=== PATIENT | male | born 1940 | race Caucasian/White ===

== ENCOUNTER 2017-09-27 08:42 | Inpatient (IN) | payer MEDICARE, OTHER ==
[~2017-09-27] VITALS: Ht 177.8 cm; Wt 100.8 kg
[2017-09-27] MEDS ORDERED: SODIUM CHLORIDE FLUSH 10ML SYR IVF ONE (09:30)
[2017-09-27] MEDS ORDERED: VANCOMYCIN PMX 1GM/200ML 200 ML IVPB ONE (10:00)
[2017-09-27] MEDS ORDERED: hydrALAzine 20 MG/ML, 1ML IV ONE (10:00)
[2017-09-27] MEDS ORDERED: SODIUM CHLORIDE FLUSH 10ML SYR IVF PRN (10:00)
[2017-09-27 10:15] LABS: BASOPHILS # (AUTO) 0.01 x10^3/uL (0-0.1); BASOPHILS % (AUTO) 0 % (0-1); EOSINOPHILS # (AUTO) 0.16 x10^3/uL (0-0.4); EOSINOPHILS % (AUTO) 2 % (1-7); LYMPHOCYTES # (AUTO) 0.75 x10^3/uL (1-3.4); LYMPHOCYTES % (AUTO) 7 % (22-44); MD NO; MEAN CORPUSCULAR HEMOGLOBIN 31.7 pg (27.5-34.5); MEAN CORPUSCULAR HGB CONC 33.2 g/dL (33.2-36.2); MEAN CORPUSCULAR VOLUME 95.4 fL (81-97); MEAN PLATELET VOLUME 9.3 fL (7.4-10.4); MONOCYTES # (AUTO) 0.75 x10^3/uL (0.2-0.8); MONOCYTES % (AUTO) 7 % (2-9); NEUTROPHILS # (AUTO) 8.68 x10^3/uL (1.8-6.8); NEUTROPHILS % (AUTO) 84 % (42-75); PLATELET COUNT 178 x10^3/uL (130-400); RED BLOOD COUNT 4.68 x10^6/uL (4.38-5.82); RED CELL DISTRIBUTION WIDTH 15.6 % (9.4-14.8)
[2017-09-27 10:25] LABS: INTERNATIONAL NORMALIZED RATIO 1.14 (0.93-1.1); PROTHROMBIN TIME 11.8 Seconds (9.6-11.5)
[2017-09-27 10:28] LABS: ALANINE AMINOTRANSFERASE 66 U/L (12-78); ALBUMIN 3.2 g/dL (3.4-5.0); ANION GAP 6 mmol/L (5-15); CALCIUM 8.2 mg/dL (8.5-10.1); CHLORIDE 111 mmol/L (98-107); CREATININE 2.58 mg/dL (0.7-1.3)
[2017-09-27] MEDS ORDERED: [UNRECOGNIZED DRUG - REMARK] MC SCH (10:30)
[2017-09-27 10:33] LABS: ALKALINE PHOSPHATASE 55 U/L (45-117); BILIRUBIN,TOTAL 1.4 mg/dL (0.2-1.0); TOTAL PROTEIN 6.2 g/dL (6.4-8.2)
[2017-09-27 10:36] LABS: TROPONIN I 0.129 ng/mL (0.000-0.045)
[2017-09-27] MEDS: SODIUM CHLORIDE 0.9% 1,000 ML IV SCH ×2 (11:00→17:05)
[2017-09-27] MEDS ORDERED: hydrALAzine 20 MG/ML, 1ML ONE ×2 (11:08→13:42)
[2017-09-27] MEDS ORDERED: METO25TA35 PO (11:23)
[2017-09-27 11:48] VITALS: BP 202/84
[2017-09-27] MEDS ORDERED: CEFAZOLIN 1,000 MG ONE (12:38)
[2017-09-27] MEDS ORDERED: MIDAZOLAM 1 MG/ML, 5ML ONE (12:38)
[2017-09-27] MEDS ORDERED: FENTANYL PF 100 MCG/2ML ONE ×4 (12:38→16:03)
[2017-09-27] MEDS ORDERED: CEFAZOLIN PMX 1GM/50ML 0 ML ONE (12:38)
[2017-09-27] MEDS ORDERED: VANCOMYCIN 500 MG ONE ×2 (12:40→14:36)
[2017-09-27] MEDS ORDERED: VANCOMYCIN PMX 1GM/200ML 200 ML ONE (12:40)
[2017-09-27] MEDS ORDERED: ONDANSETRON 2MG/ML, 2ML ONE (12:50)
[2017-09-27] MEDS ORDERED: MIDAZOLAM 1 MG/ML, 2ML ONE (14:11)
[2017-09-27] MEDS ORDERED: AMLODIPINE 5 MG TABLET PO ONE (17:00)
[2017-09-27] MEDS ORDERED: ACETAMINOPHEN 325 MG TABLET PO PRN (19:00)
[2017-09-27] MEDS ORDERED: ONDANSETRON 2MG/ML, 2ML IVPush PRN (19:00)
[2017-09-27 19:04] LABS: TROPONIN I 0.304 ng/mL (0.000-0.045)
[2017-09-27] MEDS: HEPARIN 5,000 UNITS/ML, 1ML SQ SCH (20:27)
[2017-09-28 00:38] LABS: TROPONIN I 0.475 ng/mL (0.000-0.045)
[2017-09-28] MEDS: HEPARIN 5,000 UNITS/ML, 1ML SQ SCH ×3 (03:04→20:43)
[2017-09-28] MEDS: hydrALAzine 20 MG/ML, 1ML IV PRN ×3 (03:35→13:35)
[2017-09-28 05:59] LABS: BASOPHILS # (AUTO) 0.01 x10^3/uL (0-0.1); BASOPHILS % (AUTO) 0 % (0-1); EOSINOPHILS # (AUTO) 0.09 x10^3/uL (0-0.4); EOSINOPHILS % (AUTO) 1 % (1-7); LYMPHOCYTES # (AUTO) 0.59 x10^3/uL (1-3.4); LYMPHOCYTES % (AUTO) 5 % (22-44); MD NO; MEAN CORPUSCULAR HEMOGLOBIN 32.4 pg (27.5-34.5); MEAN CORPUSCULAR HGB CONC 33.8 g/dL (33.2-36.2); MEAN PLATELET VOLUME 10.3 fL (7.4-10.4); MONOCYTES # (AUTO) 0.89 x10^3/uL (0.2-0.8); MONOCYTES % (AUTO) 8 % (2-9); NEUTROPHILS % (AUTO) 86 % (42-75); PLATELET COUNT 128 x10^3/uL (130-400); RED BLOOD COUNT 4.49 x10^6/uL (4.38-5.82); RED CELL DISTRIBUTION WIDTH 15.3 % (9.4-14.8)
[2017-09-28 06:22] LABS: ALANINE AMINOTRANSFERASE 47 U/L (12-78); ALBUMIN 2.8 g/dL (3.4-5.0); ANION GAP 7 mmol/L (5-15); CALCIUM 7.8 mg/dL (8.5-10.1); CHLORIDE 115 mmol/L (98-107)
[2017-09-28 06:24] LABS: ALKALINE PHOSPHATASE 52 U/L (45-117); BILIRUBIN,TOTAL 1.2 mg/dL (0.2-1.0); CREATININE 2.25 mg/dL (0.7-1.3); TOTAL PROTEIN 5.7 g/dL (6.4-8.2); VANCOMYCIN,TROUGH 8.9 mcg/mL (5.0-10.0)
[2017-09-28 08:59] LABS: TROPONIN I 0.309 ng/mL (0.000-0.045)
[2017-09-28] MEDS: PANTOPRAZOLE 40 MG IV IVPush SCH (09:18)
[2017-09-28] MEDS ORDERED: LIDOCAINE-MPF 2%, 2ML ONE (10:30)
[2017-09-28] MEDS: SODIUM CHLORIDE 0.9% 1,000 ML IV SCH (11:23)
[2017-09-28 16:35] LABS: ALANINE AMINOTRANSFERASE 41 U/L (12-78); ALBUMIN 2.6 g/dL (3.4-5.0); ANION GAP 6 mmol/L (5-15); CALCIUM 7.6 mg/dL (8.5-10.1); CHLORIDE 113 mmol/L (98-107); CREATININE 2.45 mg/dL (0.7-1.3)
[2017-09-28 16:38] LABS: ALKALINE PHOSPHATASE 51 U/L (45-117); TOTAL PROTEIN 5.3 g/dL (6.4-8.2)
[2017-09-28] MEDS: FENTANYL PF 100 MCG/2ML IVPush PRN ×2 (16:54→20:45)
[2017-09-28 17:33] LABS: BASOPHILS # (AUTO) 0.01 x10^3/uL (0-0.1); BASOPHILS % (AUTO) 0 % (0-1); EOSINOPHILS # (AUTO) 0.03 x10^3/uL (0-0.4); EOSINOPHILS % (AUTO) 0 % (1-7); LYMPHOCYTES # (AUTO) 0.48 x10^3/uL (1-3.4); LYMPHOCYTES % (AUTO) 4 % (22-44); MD NO; MEAN CORPUSCULAR HEMOGLOBIN 32.3 pg (27.5-34.5); MEAN CORPUSCULAR HGB CONC 33.4 g/dL (33.2-36.2); MEAN CORPUSCULAR VOLUME 96.6 fL (81-97); MONOCYTES # (AUTO) 0.92 x10^3/uL (0.2-0.8); MONOCYTES % (AUTO) 7 % (2-9); NEUTROPHILS % (AUTO) 89 % (42-75); PLATELET COUNT 138 x10^3/uL (130-400)
[2017-09-28 17:51] LABS: INTERNATIONAL NORMALIZED RATIO 1.21 (0.93-1.1); PROTHROMBIN TIME 12.4 Seconds (9.6-11.5)
[2017-09-28 18:00] LABS: HEMOGLOBIN A1C 5.4 % (4.2-6.3)
[2017-09-28] MEDS: SODIUM CHLORIDE FLUSH 10ML SYR IVF SCH (20:46)
[2017-09-29] MEDS ORDERED: ALBUMIN HUMAN 5% 500 ML IV PRN (00:30)
[2017-09-29] MEDS: SODIUM CHLORIDE 0.9% 1,000 ML IV SCH ×2 (02:01→14:20)
[2017-09-29] MEDS: HEPARIN 5,000 UNITS/ML, 1ML SQ SCH ×3 (03:06→20:45)
[2017-09-29 04:35] LABS: BASOPHILS # (AUTO) 0.05 x10^3/uL (0-0.1); BASOPHILS % (AUTO) 1 % (0-1); EOSINOPHILS # (AUTO) 0.16 x10^3/uL (0-0.4); EOSINOPHILS % (AUTO) 2 % (1-7); LYMPHOCYTES % (AUTO) 6 % (22-44); MD NO; MEAN CORPUSCULAR HEMOGLOBIN 32.4 pg (27.5-34.5); MEAN CORPUSCULAR HGB CONC 33.7 g/dL (33.2-36.2); MEAN CORPUSCULAR VOLUME 96.1 fL (81-97); MEAN PLATELET VOLUME 9.1 fL (7.4-10.4); MONOCYTES # (AUTO) 1.01 x10^3/uL (0.2-0.8); MONOCYTES % (AUTO) 9 % (2-9); NEUTROPHILS # (AUTO) 9.19 x10^3/uL (1.8-6.8); NEUTROPHILS % (AUTO) 83 % (42-75); PLATELET COUNT 126 x10^3/uL (130-400); RED BLOOD COUNT 4.26 x10^6/uL (4.38-5.82); RED CELL DISTRIBUTION WIDTH 15.4 % (9.4-14.8)
[2017-09-29 04:41] LABS: ANION GAP 3 mmol/L (5-15); CALCIUM 7.3 mg/dL (8.5-10.1); CHLORIDE 116 mmol/L (98-107); CREATININE 2.51 mg/dL (0.7-1.3)
[2017-09-29 04:51] VITALS: BP_SYST 167; BP_SYST 174; BP_DIAS 74; BP_DIAS 82
[2017-09-29] MEDS ORDERED: SUFentanil 50 MCG/ML, 5ML ONE (07:25)
[2017-09-29] MEDS ORDERED: MIDAZOLAM 10MG/2 ML ONE (07:25)
[2017-09-29] MEDS ORDERED: PHENYLEPHRINE 10 MG in SODIUM CHLORIDE 0.9% 249 ML IV PRN (07:30)
[2017-09-29] MEDS ORDERED: DEXMEDETOMIDINE 200 MCG in SODIUM CHLORIDE 0.9% 48 ML IV SCH (07:30)
[2017-09-29] MEDS ORDERED: CEFUROXIME 1.5 GM in SODIUM CHLORIDE 0.9% 50 ML IVPB ONE (07:30)
[2017-09-29] MEDS ORDERED: POTASSIUM CHLORIDE 80 MEQ, SODIUM BICARBONATE 8.4% 10 MEQ, MAGNESIUM SULFATE 0.5 GM, LI... IV PRN (07:30)
[2017-09-29] MEDS ORDERED: VANCOMYCIN 1,200 MG in SODIUM CHLORIDE 0.9% 250 ML IVPB ONE (07:30)
[2017-09-29] MEDS ORDERED: REGULAR INSULIN 62.5 UNITS in SODIUM CHLORIDE 0.9% 249.375 ML IV PRN (07:30)
[2017-09-29] MEDS ORDERED: CHLORHEXIDINE 15 ML BOTTLE MM ONE (07:30)
[2017-09-29] MEDS ORDERED: MANNITOL PMX 20% 500 ML IVPB PRN (07:30)
[2017-09-29] MEDS ORDERED: EPINEPHRINE 2 MG in SODIUM CHLORIDE 0.9% 248 ML IV SCH (07:30)
[2017-09-29 08:42] LABS: MICROSCOPIC INDICATED
[2017-09-29] MEDS: DOCUSATE 100 MG CAPSULE PO SCH ×2 (09:00→19:24)
[2017-09-29] MEDS: PANTOPRAZOLE 40 MG IV IVPush SCH (09:00)
[2017-09-29] MEDS: SODIUM CHLORIDE FLUSH 10ML SYR IVF SCH ×2 (09:00→19:24)
[2017-09-29] MEDS ORDERED: PROPOFOL 10 MG/ML, 20ML ONE (10:29)
[2017-09-29] MEDS ORDERED: ROCURONIUM 10MG/ML,5ML ONE ×2 (10:29)
[2017-09-29] MEDS ORDERED: DEXMEDETOMIDINE 200 MCG in SODIUM CHLORIDE 0.9% 48 ML IV PRN (11:38)
[2017-09-29] MEDS ORDERED: HYDROcodone/APAP 10/325 MG TABLET PO PRN (12:00)
[2017-09-29] MEDS ORDERED: HYDROcodone/APAP 5/325 TABLET PO PRN (12:00)
[2017-09-29] MEDS ORDERED: MIDAZOLAM 1 MG/ML, 5ML IVPush PRN (12:00)
[2017-09-29] MEDS ORDERED: ACETAMINOPHEN 325 MG TABLET PO PRN (12:00)
[2017-09-29] MEDS ORDERED: CEFUROXIME 1.5 GM in SODIUM CHLORIDE 0.9% 50 ML IVPB SCH (12:00)
[2017-09-29] MEDS ORDERED: PROCHLORPERAZINE 5 MG/ML, 2ML IVPush PRN (12:00)
[2017-09-29] MEDS ORDERED: ONDANSETRON 2MG/ML, 2ML IVPush PRN (12:00)
[2017-09-29] MEDS ORDERED: BISACODYL 10 MG SUPP PR PRN (12:00)
[2017-09-29] MEDS ORDERED: BISACODYL 5 MG EC TABLET PO PRN (12:00)
[2017-09-29] MEDS ORDERED: ACETAMINOPHEN 650 MG SUPP PR PRN (12:00)
[2017-09-29] MEDS ORDERED: MORPHINE SULFATE 4 MG/ML, 1ML ONE ×2 (13:50→15:27)
[2017-09-29] MEDS: morphine SULFATE 10 MG/ML, 1ML IVPush PRN ×2 (13:53→15:29)
[2017-09-29] MEDS: hydrALAzine 20 MG/ML, 1ML IV PRN (15:11)
[2017-09-29] MEDS: FENTANYL PF 100 MCG/2ML IVPush PRN ×4 (15:37→21:14)
[2017-09-29] MEDS ORDERED: LABETALOL 5MG/ML, 20ML ONE (15:51)
[2017-09-29] MEDS ORDERED: LABETALOL 5MG/ML, 20ML IVPush PRN (16:00)
[2017-09-29] MEDS: OXYcodone IR 5MG TABLET PO PRN (19:23)
[2017-09-30] MEDS: OXYcodone IR 5MG TABLET PO PRN ×5 (00:05→20:20)
[2017-09-30] MEDS: SODIUM CHLORIDE 0.9% 1,000 ML IV SCH ×2 (00:05→13:01)
[2017-09-30] MEDS: VANCOMYCIN 1,400 MG in SODIUM CHLORIDE 0.9% 250 ML IVPB SCH (00:05)
[2017-09-30] MEDS: HEPARIN 5,000 UNITS/ML, 1ML SQ SCH ×3 (01:48→20:20)
[2017-09-30 05:51] LABS: MEAN CORPUSCULAR HGB CONC 32.9 g/dL (33.2-36.2); MEAN CORPUSCULAR VOLUME 97.2 fL (81-97); MEAN PLATELET VOLUME 9.1 fL (7.4-10.4); PLATELET COUNT 133 x10^3/uL (130-400); RED BLOOD COUNT 4.43 x10^6/uL (4.38-5.82); RED CELL DISTRIBUTION WIDTH 15.9 % (9.4-14.8)
[2017-09-30 06:18] LABS: MD YES
[2017-09-30 06:19] LABS: BAND#(MANUAL) 0.64 x10^3/uL; BANDS%(MANUAL) 3 % (0-7); LYMPH#(MANUAL) 0.64 x10^3/uL (1-3.4); LYMPHS% (MANUAL) 3 % (22-44); MONOS#(MANUAL) 1.28 x10^3/uL (0.3-2.7); MONOS% (MANUAL) 6 % (2-9); SEG#(MANUAL) 18.74 x10^3/uL (1.8-6.8); SEGS% (MANUAL) 88 % (42-75)
[2017-09-30 06:21] LABS: <PLATELET ESTIMATE> ADEQUATE; <PLT MORPHOLOGY> NORMAL PLT MORPH; ANISOCYTOSIS 1+
[2017-09-30] MEDS: SODIUM CHLORIDE FLUSH 10ML SYR IVF SCH ×2 (08:33→20:21)
[2017-09-30] MEDS: PANTOPRAZOLE 40 MG IV IVPush SCH (08:33)
[2017-09-30] MEDS: DOCUSATE 100 MG CAPSULE PO SCH ×2 (08:33→20:20)
[2017-09-30] MEDS: CHLORHEXIDINE 15 ML BOTTLE MM SCH (11:57)
[2017-09-30] MEDS: hydrALAzine 20 MG/ML, 1ML IV PRN (13:01)
[2017-09-30 15:29] VITALS: BP 131/74
[2017-09-30] MEDS: CARVEDILOL 6.25 MG TABLET PO SCH (17:36)
[2017-09-30] MEDS ORDERED: TRAV5DRO EACHEYE (17:38)
[2017-09-30 18:34] VITALS: BP 117/69
[2017-09-30 20:17] VITALS: BP 125/68
[2017-10-01] VITALS (7 sets, daily range): BP systolic 107–188; BP diastolic 55–83
[2017-10-01] MEDS: VANCOMYCIN 1,400 MG in SODIUM CHLORIDE 0.9% 250 ML IVPB SCH (00:11)
[2017-10-01] MEDS: CHLORHEXIDINE 15 ML BOTTLE MM SCH ×3 (00:51→23:39)
[2017-10-01] MEDS: SODIUM CHLORIDE 0.9% 1,000 ML IV SCH (04:05)
[2017-10-01] MEDS: HEPARIN 5,000 UNITS/ML, 1ML SQ SCH ×3 (04:07→20:40)
[2017-10-01 04:53] LABS: BASOPHILS # (AUTO) 0.01 x10^3/uL (0-0.1); BASOPHILS % (AUTO) 0 % (0-1); EOSINOPHILS # (AUTO) 0.03 x10^3/uL (0-0.4); EOSINOPHILS % (AUTO) 0 % (1-7); LYMPHOCYTES # (AUTO) 0.46 x10^3/uL (1-3.4); LYMPHOCYTES % (AUTO) 4 % (22-44); MD NO; MEAN CORPUSCULAR HGB CONC 33.3 g/dL (33.2-36.2); MEAN CORPUSCULAR VOLUME 96.2 fL (81-97); MEAN PLATELET VOLUME 9.1 fL (7.4-10.4); MONOCYTES # (AUTO) 0.89 x10^3/uL (0.2-0.8); MONOCYTES % (AUTO) 7 % (2-9); NEUTROPHILS # (AUTO) 11.09 x10^3/uL (1.8-6.8); NEUTROPHILS % (AUTO) 89 % (42-75); PLATELET COUNT 118 x10^3/uL (130-400); RED BLOOD COUNT 4.26 x10^6/uL (4.38-5.82); RED CELL DISTRIBUTION WIDTH 16.3 % (9.4-14.8)
[2017-10-01 05:01] LABS: ANION GAP 7 mmol/L (5-15); CALCIUM 7.2 mg/dL (8.5-10.1); CHLORIDE 115 mmol/L (98-107); CREATININE 3.12 mg/dL (0.7-1.3)
[2017-10-01] MEDS: CARVEDILOL 6.25 MG TABLET PO SCH ×2 (06:08→18:29)
[2017-10-01] MEDS: DOCUSATE 100 MG CAPSULE PO SCH ×2 (08:42→20:14)
[2017-10-01] MEDS: PANTOPROZOLE 40MG TABLET PO SCH (08:42)
[2017-10-01] MEDS: SODIUM CHLORIDE FLUSH 10ML SYR IVF SCH ×2 (08:47→20:14)
[2017-10-01] MEDS ORDERED: FUROSEMIDE 40 MG/4 ML IV SCH (10:30)
[2017-10-01 12:48] LABS: MICROSCOPIC INDICATED
[2017-10-01] MEDS: CEFTRIAXONE 1,000 MG in SODIUM CHLORIDE 0.9% 50 ML IV SCH (22:22)
[2017-10-02 01:08] VITALS: BP 147/62
[2017-10-02] MEDS: HEPARIN 5,000 UNITS/ML, 1ML SQ SCH ×2 (05:33→16:38)
[2017-10-02 06:09] LABS: BASOPHILS # (AUTO) 0.02 x10^3/uL (0-0.1); BASOPHILS % (AUTO) 0 % (0-1); EOSINOPHILS # (AUTO) 0.17 x10^3/uL (0-0.4); EOSINOPHILS % (AUTO) 1 % (1-7); LYMPHOCYTES # (AUTO) 0.34 x10^3/uL (1-3.4); LYMPHOCYTES % (AUTO) 3 % (22-44); MD NO; MEAN CORPUSCULAR HEMOGLOBIN 31.7 pg (27.5-34.5); MEAN CORPUSCULAR HGB CONC 33.4 g/dL (33.2-36.2); MEAN PLATELET VOLUME 8.8 fL (7.4-10.4); MONOCYTES % (AUTO) 6 % (2-9); NEUTROPHILS # (AUTO) 10.96 x10^3/uL (1.8-6.8); NEUTROPHILS % (AUTO) 90 % (42-75); PLATELET COUNT 135 x10^3/uL (130-400); RED BLOOD COUNT 4.06 x10^6/uL (4.38-5.82); RED CELL DISTRIBUTION WIDTH 15.5 % (9.4-14.8)
[2017-10-02 06:22] LABS: ALBUMIN 1.9 g/dL (3.4-5.0); ANION GAP 7 mmol/L (5-15); CALCIUM 7.4 mg/dL (8.5-10.1); CHLORIDE 108 mmol/L (98-107)
[2017-10-02 06:27] LABS: ALANINE AMINOTRANSFERASE 25 U/L (12-78); ALKALINE PHOSPHATASE 48 U/L (45-117); BILIRUBIN,TOTAL 0.5 mg/dL (0.2-1.0); CREATININE 3.12 mg/dL (0.7-1.3); TOTAL PROTEIN 5.5 g/dL (6.4-8.2)
[2017-10-02 06:56] VITALS: BP 160/91
[2017-10-02] MEDS ORDERED: CARVEDILOL 6.25 MG TABLET PO ONE (09:00)
[2017-10-02] MEDS ORDERED: FUROSEMIDE 40 MG/4 ML IV ONE (09:00)
[2017-10-02] MEDS: DOCUSATE 100 MG CAPSULE PO SCH ×2 (09:06→19:51)
[2017-10-02] MEDS: PANTOPROZOLE 40MG TABLET PO SCH (09:06)
[2017-10-02] MEDS: SODIUM CHLORIDE FLUSH 10ML SYR IVF SCH ×2 (09:07→19:51)
[2017-10-02 13:34] VITALS: BP 129/76
[2017-10-02 16:27] VITALS: BP 149/73
[2017-10-02] MEDS: CARVEDILOL 12.5 MG TABLET PO SCH (17:59)
[2017-10-02 19:26] VITALS: BP 151/75
[2017-10-02] MEDS ORDERED: ALBUTEROL SULFATE 2.5 MG/3 ML ONE (20:08)
[2017-10-02] MEDS ORDERED: ALBUTEROL/IPRATROPIUM 2.5MG/0.5MG, 3 ML NPPB PRN (20:30)
[2017-10-02 22:24] VITALS: BP 124/70
[2017-10-02] MEDS: CEFTRIAXONE 1,000 MG in SODIUM CHLORIDE 0.9% 50 ML IV SCH (22:31)
[2017-10-03] MEDS: HEPARIN 5,000 UNITS/ML, 1ML SQ SCH ×3 (00:26→17:19)
[2017-10-03 01:05] VITALS: BP 114/73
[2017-10-03 05:53] VITALS: BP 147/74
[2017-10-03] MEDS: CARVEDILOL 12.5 MG TABLET PO SCH ×2 (05:57→17:20)
[2017-10-03] MEDS: ALBUTEROL/IPRATROPIUM 2.5MG/0.5MG, 3 ML NPPB SCH ×4 (07:00→19:43)
[2017-10-03 07:29] VITALS: BP 122/67
[2017-10-03] MEDS ORDERED: LEVOFLOXACIN 500 MG TABLET PO ONE (09:00)
[2017-10-03] MEDS: DOCUSATE 100 MG CAPSULE PO SCH ×2 (09:11→20:49)
[2017-10-03] MEDS: PANTOPROZOLE 40MG TABLET PO SCH (09:12)
[2017-10-03] MEDS: SODIUM CHLORIDE FLUSH 10ML SYR IVF SCH ×2 (09:15→20:45)
[2017-10-03 15:09] VITALS: BP 142/73
[2017-10-03 20:47] VITALS: BP 155/85
[2017-10-04] MEDS: HEPARIN 5,000 UNITS/ML, 1ML SQ SCH ×3 (01:06→16:38)
[2017-10-04 01:34] VITALS: BP 160/82
[2017-10-04 05:57] VITALS: BP 164/80
[2017-10-04] MEDS: CARVEDILOL 12.5 MG TABLET PO SCH ×2 (06:01→16:37)
[2017-10-04] MEDS: ALBUTEROL/IPRATROPIUM 2.5MG/0.5MG, 3 ML NPPB SCH ×4 (06:55→19:37)
[2017-10-04] MEDS: DOCUSATE 100 MG CAPSULE PO SCH ×2 (07:47→21:13)
[2017-10-04] MEDS: PANTOPROZOLE 40MG TABLET PO SCH (07:58)
[2017-10-04] MEDS: SODIUM CHLORIDE FLUSH 10ML SYR IVF SCH ×2 (08:01→21:12)
[2017-10-04 08:03] VITALS: BP 144/77
[2017-10-04] MEDS ORDERED: LEVOFLOXACIN 250 MG TABLET PO SCH (09:00)
[2017-10-04] MEDS ORDERED: ERTAPENEM 1 GM in SODIUM CHLORIDE 0.9% 50 ML IV SCH (12:00)
[2017-10-04 12:47] LABS: BASOPHILS # (AUTO) 0.01 x10^3/uL (0-0.1); BASOPHILS % (AUTO) 0 % (0-1); EOSINOPHILS # (AUTO) 0.12 x10^3/uL (0-0.4); EOSINOPHILS % (AUTO) 2 % (1-7); LYMPHOCYTES # (AUTO) 0.29 x10^3/uL (1-3.4); LYMPHOCYTES % (AUTO) 4 % (22-44); MD NO; MEAN CORPUSCULAR HEMOGLOBIN 31.7 pg (27.5-34.5); MEAN CORPUSCULAR HGB CONC 33.1 g/dL (33.2-36.2); MEAN CORPUSCULAR VOLUME 95.6 fL (81-97); MEAN PLATELET VOLUME 8.3 fL (7.4-10.4); MONOCYTES % (AUTO) 8 % (2-9); NEUTROPHILS # (AUTO) 6.18 x10^3/uL (1.8-6.8); NEUTROPHILS % (AUTO) 86 % (42-75); PLATELET COUNT 164 x10^3/uL (130-400); RED BLOOD COUNT 3.96 x10^6/uL (4.38-5.82); RED CELL DISTRIBUTION WIDTH 15.6 % (9.4-14.8)
[2017-10-04 12:48] LABS: ANION GAP 7 mmol/L (5-15); CALCIUM 7.9 mg/dL (8.5-10.1); CHLORIDE 112 mmol/L (98-107); CREATININE 2.71 mg/dL (0.7-1.3)
[2017-10-04 13:20] VITALS: BP 177/82
[2017-10-04 16:36] VITALS: BP 158/88
[2017-10-04 21:08] VITALS: BP 168/76
[2017-10-05 00:32] VITALS: BP 123/69
[2017-10-05] MEDS: HEPARIN 5,000 UNITS/ML, 1ML SQ SCH ×3 (00:35→17:23)
[2017-10-05 04:40] VITALS: BP 149/77
[2017-10-05] MEDS: CARVEDILOL 12.5 MG TABLET PO SCH ×2 (04:52→17:23)
[2017-10-05] MEDS: ALBUTEROL/IPRATROPIUM 2.5MG/0.5MG, 3 ML NPPB SCH ×4 (06:28→19:54)
[2017-10-05 07:47] VITALS: BP 103/57
[2017-10-05] MEDS: PANTOPROZOLE 40MG TABLET PO SCH (08:27)
[2017-10-05] MEDS: DOCUSATE 100 MG CAPSULE PO SCH ×2 (08:27→21:45)
[2017-10-05] MEDS: SODIUM CHLORIDE FLUSH 10ML SYR IVF SCH ×2 (08:28→21:45)
[2017-10-05] MEDS: ERTAPENEM 0.5 GM in SODIUM CHLORIDE 0.9% 50 ML IV SCH (14:00)
[2017-10-05 14:06] VITALS: BP 146/79
[2017-10-05 21:44] VITALS: BP 128/74
[2017-10-05] MEDS ORDERED: DIPHENHYDRAMINE 12.5MG/5ML, 10ML UDC PO ONE (23:30)
[2017-10-06] VITALS (7 sets, daily range): BP systolic 141–201; BP diastolic 70–95
[2017-10-06] MEDS: HEPARIN 5,000 UNITS/ML, 1ML SQ SCH ×3 (01:14→17:21)
[2017-10-06] MEDS: ASPIRIN 81 MG TABLET EC PO SCH (05:25)
[2017-10-06] MEDS: CARVEDILOL 12.5 MG TABLET PO SCH ×2 (05:27→17:21)
[2017-10-06] MEDS: ALBUTEROL/IPRATROPIUM 2.5MG/0.5MG, 3 ML NPPB SCH ×4 (07:15→19:58)
[2017-10-06] MEDS: SODIUM CHLORIDE FLUSH 10ML SYR IVF SCH ×2 (08:03→22:03)
[2017-10-06] MEDS: PANTOPROZOLE 40MG TABLET PO SCH (08:04)
[2017-10-06] MEDS: DOCUSATE 100 MG CAPSULE PO SCH ×2 (08:04→22:02)
[2017-10-06] MEDS ORDERED: ACET325T14 PO (12:24)
[2017-10-06] MEDS ORDERED: CARV12.543 PO (12:25)
[2017-10-06] MEDS ORDERED: DOCU-131 PO (12:25)
[2017-10-06] MEDS ORDERED: ERTA1VIA IV (12:28)
[2017-10-06] MEDS ORDERED: PANT40TA3 PO (12:30)
[2017-10-06] MEDS ORDERED: HYDR-3342 PO (12:30)
[2017-10-06] MEDS ORDERED: ALPR0.25 PO (12:31)
[2017-10-06] MEDS ORDERED: ASPI-621 PO (12:31)
[2017-10-06] MEDS ORDERED: IPRA3AMP30 NPPB (12:33)
[2017-10-06] MEDS: ERTAPENEM 0.5 GM in SODIUM CHLORIDE 0.9% 50 ML IV SCH (13:17)
[2017-10-07] MEDS: HEPARIN 5,000 UNITS/ML, 1ML SQ SCH ×3 (01:03→17:20)
[2017-10-07 01:16] VITALS: BP 167/81
[2017-10-07] MEDS: CARVEDILOL 12.5 MG TABLET PO SCH (06:40)
[2017-10-07] MEDS: ASPIRIN 81 MG TABLET EC PO SCH (06:40)
[2017-10-07 06:42] VITALS: BP 171/83
[2017-10-07] MEDS: ALBUTEROL/IPRATROPIUM 2.5MG/0.5MG, 3 ML NPPB SCH ×4 (07:30→19:15)
[2017-10-07] MEDS: SODIUM CHLORIDE FLUSH 10ML SYR IVF SCH ×2 (09:04→21:16)
[2017-10-07] MEDS: PANTOPROZOLE 40MG TABLET PO SCH (09:04)
[2017-10-07] MEDS: AMLODIPINE 5 MG TABLET PO SCH (09:05)
[2017-10-07] MEDS: DOCUSATE 100 MG CAPSULE PO SCH (09:05)
[2017-10-07] MEDS: ERTAPENEM 0.5 GM in SODIUM CHLORIDE 0.9% 50 ML IV SCH (13:47)
[2017-10-07 15:33] VITALS: BP 149/85
[2017-10-07] MEDS ORDERED: TRAZODONE 50MG TABLET PO PRN (17:00)
[2017-10-07] MEDS: METOPROLOL TARTRATE 50 MG TABLET PO SCH (17:20)
[2017-10-07 20:59] VITALS: BP 155/85
[2017-10-07] MEDS: TRAVOPROST OPHTH 0.004%, 2.5ML OP SCH (21:16)
[2017-10-07 23:32] VITALS: BP 164/85
[2017-10-08 01:20] VITALS: BP 152/76
[2017-10-08] MEDS: HEPARIN 5,000 UNITS/ML, 1ML SQ SCH ×3 (01:33→16:54)
[2017-10-08 06:40] VITALS: BP 177/92
[2017-10-08] MEDS: ASPIRIN 81 MG TABLET EC PO SCH (06:43)
[2017-10-08] MEDS: METOPROLOL TARTRATE 50 MG TABLET PO SCH ×2 (06:43→16:54)
[2017-10-08] MEDS: ALBUTEROL/IPRATROPIUM 2.5MG/0.5MG, 3 ML NPPB SCH ×4 (07:41→19:27)
[2017-10-08] MEDS: DOCUSATE 100 MG CAPSULE PO SCH (08:09)
[2017-10-08] MEDS: PANTOPROZOLE 40MG TABLET PO SCH (08:10)
[2017-10-08] MEDS: AMLODIPINE 5 MG TABLET PO SCH (08:10)
[2017-10-08] MEDS: SODIUM CHLORIDE FLUSH 10ML SYR IVF SCH ×2 (08:13→20:57)
[2017-10-08 08:14] VITALS: BP 150/93
[2017-10-08] MEDS: ERTAPENEM 0.5 GM in SODIUM CHLORIDE 0.9% 50 ML IV SCH (11:55)
[2017-10-08 12:06] VITALS: BP 146/84
[2017-10-08] MEDS ORDERED: METO50TA82 PO (15:27)
[2017-10-08] MEDS ORDERED: AMLO5TAB2 PO (15:27)
[2017-10-08 15:40] LABS: BASOPHILS # (AUTO) 0.03 x10^3/uL (0-0.1); BASOPHILS % (AUTO) 0 % (0-1); EOSINOPHILS # (AUTO) 0.26 x10^3/uL (0-0.4); EOSINOPHILS % (AUTO) 3 % (1-7); LYMPHOCYTES # (AUTO) 0.64 x10^3/uL (1-3.4); LYMPHOCYTES % (AUTO) 7 % (22-44); MD NO; MEAN CORPUSCULAR HEMOGLOBIN 31.3 pg (27.5-34.5); MEAN CORPUSCULAR HGB CONC 32.8 g/dL (33.2-36.2); MEAN CORPUSCULAR VOLUME 95.3 fL (81-97); MEAN PLATELET VOLUME 7.9 fL (7.4-10.4); MONOCYTES % (AUTO) 8 % (2-9); NEUTROPHILS % (AUTO) 82 % (42-75); PLATELET COUNT 349 x10^3/uL (130-400); RED BLOOD COUNT 4.27 x10^6/uL (4.38-5.82); RED CELL DISTRIBUTION WIDTH 15.3 % (9.4-14.8)
[2017-10-08 15:42] LABS: ALBUMIN 2.1 g/dL (3.4-5.0); ANION GAP 7 mmol/L (5-15); CALCIUM 8.1 mg/dL (8.5-10.1); CHLORIDE 112 mmol/L (98-107); CREATININE 2.47 mg/dL (0.7-1.3)
[2017-10-08 19:10] VITALS: BP 164/81
[2017-10-08 20:49] VITALS: BP 155/80
[2017-10-08] MEDS: TRAVOPROST OPHTH 0.004%, 2.5ML OP SCH (20:58)
[2017-10-09 01:18] VITALS: BP 164/84
[2017-10-09] MEDS: HEPARIN 5,000 UNITS/ML, 1ML SQ SCH ×3 (01:22→17:26)
[2017-10-09 03:25] VITALS: BP 154/75
[2017-10-09] MEDS: hydrALAzine 20 MG/ML, 1ML IV PRN (03:42)
[2017-10-09 05:12] VITALS: BP 139/65
[2017-10-09] MEDS: METOPROLOL TARTRATE 50 MG TABLET PO SCH ×2 (05:18→17:27)
[2017-10-09] MEDS: ASPIRIN 81 MG TABLET EC PO SCH (05:18)
[2017-10-09] MEDS: ALBUTEROL/IPRATROPIUM 2.5MG/0.5MG, 3 ML NPPB SCH ×3 (05:52→19:10)
[2017-10-09 07:12] VITALS: BP 135/70
[2017-10-09] MEDS: SODIUM CHLORIDE FLUSH 10ML SYR IVF SCH ×2 (09:00→21:10)
[2017-10-09] MEDS: DOCUSATE 100 MG CAPSULE PO SCH (09:04)
[2017-10-09] MEDS: AMLODIPINE 5 MG TABLET PO SCH (09:04)
[2017-10-09] MEDS: PANTOPROZOLE 40MG TABLET PO SCH (09:04)
[2017-10-09 12:00] VITALS: BP 160/89
[2017-10-09] MEDS: ERTAPENEM 0.5 GM in SODIUM CHLORIDE 0.9% 50 ML IV SCH (13:15)
[2017-10-09 18:35] VITALS: BP 147/80
[2017-10-09] MEDS: TRAVOPROST OPHTH 0.004%, 2.5ML OP SCH (21:10)
[2017-10-10] VITALS (7 sets, daily range): BP systolic 125–177; BP diastolic 73–88
[2017-10-10] MEDS: HEPARIN 5,000 UNITS/ML, 1ML SQ SCH ×2 (01:09→09:49)
[2017-10-10] MEDS: ASPIRIN 81 MG TABLET EC PO SCH (05:53)
[2017-10-10] MEDS: METOPROLOL TARTRATE 50 MG TABLET PO SCH ×2 (05:53→15:49)
[2017-10-10] MEDS: ALBUTEROL/IPRATROPIUM 2.5MG/0.5MG, 3 ML NPPB SCH ×3 (06:44→14:10)
[2017-10-10] MEDS: DOCUSATE 100 MG CAPSULE PO SCH (07:56)
[2017-10-10] MEDS: AMLODIPINE 5 MG TABLET PO SCH (09:48)
[2017-10-10] MEDS: PANTOPROZOLE 40MG TABLET PO SCH (09:49)
[2017-10-10] MEDS: SODIUM CHLORIDE FLUSH 10ML SYR IVF SCH (09:50)
[2017-10-10] MEDS: ERTAPENEM 0.5 GM in SODIUM CHLORIDE 0.9% 50 ML IV SCH (13:23)
== END 2017-10-10 16:35 | DRG 242 ==
LOC: ED 09:42 → EDIP 09:43 → ED 10:13 → 5SO 11:45 → CCU 16:53 → CSU 09-28 18:52 → 5SO 09-30 13:42
PROVIDERS: ADMIT Internal Medicine Cardiovascular Disease; ATTEND Internal Medicine Cardiovascular Disease
PROC: B5171ZZ Fluoroscopy of Left Subclavian Vein using Low Osmolar Contrast (ICD-10-PCS; 2017-09-27)
PROC: B2141ZZ Fluoroscopy of Right Heart using Low Osmolar Contrast (ICD-10-PCS; 2017-09-27)
PROC: 5A1223Z Performance of Cardiac Pacing, Continuous (ICD-10-PCS; 2017-09-27)
PROC: 0W993ZZ Drainage of Right Pleural Cavity, Percutaneous Approach (ICD-10-PCS; 2017-09-28)
PROC: 0JH604Z Insertion of Pacemaker, Single Chamber into Chest Subcutaneous Tissue and Fascia, Open Approach (ICD-10-PCS; 2017-09-29)
PROC: 0B9P00Z Drainage of Left Pleura with Drainage Device, Open Approach (ICD-10-PCS; 2017-09-29)
PROC: B246ZZ4 Ultrasonography of Right and Left Heart, Transesophageal (ICD-10-PCS; 2017-09-29)
PROC: 02HN0JZ Insertion of Pacemaker Lead into Pericardium, Open Approach (ICD-10-PCS; principal; 2017-09-29 08:30)
DX: I44.1 Atrioventricular block, second degree (principal); J96.00 Acute respiratory failure, unspecified whether with hypoxia or hypercapnia; N17.0 Acute kidney failure with tubular necrosis; J90 Pleural effusion, not elsewhere classified; E87.2 Acidosis; I16.9 Hypertensive crisis, unspecified; Z99.11 Dependence on respirator [ventilator] status; I82.211 Chronic embolism and thrombosis of superior vena cava; D68.69 Other thrombophilia; I12.9 Hypertensive chronic kidney disease with stage 1 through stage 4 chronic kidney disease, or unspecified chronic kidney disease; B96.1 Klebsiella pneumoniae [K. pneumoniae] as the cause of diseases classified elsewhere; N18.9 Chronic kidney disease, unspecified; D64.9 Anemia, unspecified; D69.6 Thrombocytopenia, unspecified; E87.5 Hyperkalemia; E87.70 Fluid overload, unspecified; I27.20 Pulmonary hypertension, unspecified; I45.10 Unspecified right bundle-branch block; I48.92 Unspecified atrial flutter; Z16.12 Extended spectrum beta lactamase (ESBL) resistance; N40.0 Benign prostatic hyperplasia without lower urinary tract symptoms; N20.0 Calculus of kidney; F41.9 Anxiety disorder, unspecified; Z90.79 Acquired absence of other genital organ(s); Z88.8 Allergy status to other drugs, medicaments and biological substances; Z79.82 Long term (current) use of aspirin; Z87.442 Personal history of urinary calculi; Z87.01 Personal history of pneumonia (recurrent)
CPT/HCPCS: 32555; 33210; 36415; 71045; 71250; 76770; 80048; 80053; 80202; 81001; 82040; 82570; 82803; 82962; 83036; 83735; 83880; 84100; 84155; 84156; 84165; 84166; 84436; 84443; 84484; 85025; 85610; 85730; 86850; 86900; 86923; 87040; 87077; 87081; 87086; 87186; 93005; 93306; 93312; 93321; 93325; 93880; 93970; 94002; 94150; 94640; 96374; 99156; 99157; 99291; C1769; C1785; C1894; J0690; J0696; J0697; J1335; J1644; J1815; J1940; J2250; J2405; J2704; J3010; J3370; J3475; J3480; J3490; J7620; P9045; C1778; C9113; J0171; J0360; J0780; J2270; J2370; J7030; J7050; Q9967

== ENCOUNTER 2017-10-15 17:36 | Inpatient (IN) | payer MEDICARE ==
[~2017-10-15] VITALS: Ht 180.3 cm; Wt 96.5 kg
[~2017-10-15 17:36] MED LIST: ACET325T14 PO; ALPR0.25 PO; AMLO5TAB7 PO; ASPI-621 PO; CARV12.543 PO; DOCU-131 PO; ERTA1VIA IV; HYDR-3342 PO; IPRA3AMP30 NPPB; METO25TA35 PO; METO50TA82 PO; PANT40TA3 PO; TRAV5DRO EACHEYE
[2017-10-15] MEDS ORDERED: SODIUM CHLORIDE FLUSH 10ML SYR IVF ONE (18:00)
[2017-10-15 19:00] LABS: BASOPHILS # (AUTO) 0.03 x10^3/uL (0-0.1); BASOPHILS % (AUTO) 0 % (0-1); EOSINOPHILS # (AUTO) 0.39 x10^3/uL (0-0.4); EOSINOPHILS % (AUTO) 4 % (1-7); LYMPHOCYTES # (AUTO) 0.69 x10^3/uL (1-3.4); LYMPHOCYTES % (AUTO) 7 % (22-44); MD NO; MEAN CORPUSCULAR HGB CONC 33.5 g/dL (33.2-36.2); MEAN CORPUSCULAR VOLUME 95.7 fL (81-97); MEAN PLATELET VOLUME 7.4 fL (7.4-10.4); MONOCYTES # (AUTO) 0.66 x10^3/uL (0.2-0.8); MONOCYTES % (AUTO) 7 % (2-9); NEUTROPHILS % (AUTO) 82 % (42-75); PLATELET COUNT 377 x10^3/uL (130-400); RED BLOOD COUNT 4.03 x10^6/uL (4.38-5.82); RED CELL DISTRIBUTION WIDTH 15.5 % (9.4-14.8)
[2017-10-15] MEDS ORDERED: MELA5TAB21 PO (19:10)
[2017-10-15] MEDS ORDERED: OMEP20TA62 PO (19:10)
[2017-10-15 19:11] LABS: INTERNATIONAL NORMALIZED RATIO 1.05 (0.93-1.1); PROTHROMBIN TIME 10.9 Seconds (9.6-11.5)
[2017-10-15 19:12] LABS: ALANINE AMINOTRANSFERASE 21 U/L (12-78); ALBUMIN 2.3 g/dL (3.4-5.0); ANION GAP 5 mmol/L (5-15); CALCIUM 8.2 mg/dL (8.5-10.1); CHLORIDE 112 mmol/L (98-107); CREATININE 1.93 mg/dL (0.7-1.3)
[2017-10-15 19:17] LABS: ALKALINE PHOSPHATASE 70 U/L (45-117); BILIRUBIN,TOTAL 0.5 mg/dL (0.2-1.0); TOTAL PROTEIN 6.2 g/dL (6.4-8.2); TROPONIN I 0.033 ng/mL (0.000-0.045)
[2017-10-15 19:35] LABS: CULTURE INDICATED? YES; MICROSCOPIC INDICATED
[2017-10-15] MEDS ORDERED: OXYcodone/APAP 5/325MG TABLET PO PRN (21:00)
[2017-10-15] MEDS ORDERED: ONDANSETRON 2MG/ML, 2ML IVPush PRN (21:00)
[2017-10-15] MEDS ORDERED: BISACODYL 10 MG SUPP PR PRN (21:00)
[2017-10-15] MEDS ORDERED: ACETAMINOPHEN 325 MG TABLET PO PRN (21:00)
[2017-10-15] MEDS ORDERED: morphine SULFATE 10 MG/ML, 1ML IVPush PRN (21:00)
[2017-10-15] MEDS ORDERED: PROMETHAZINE 25 MG/ML, 1ML IM PRN (21:00)
[2017-10-15] MEDS ORDERED: DOCUSATE 100 MG CAPSULE PO PRN (21:00)
[2017-10-15] MEDS ORDERED: hydrALAzine 20 MG/ML, 1ML IVPush PRN (21:00)
[2017-10-15] MEDS ORDERED: ONDANSETRON ODT 4 MG PO PRN (21:00)
[2017-10-15] MEDS ORDERED: POLYETHYLENE GLYCOL 17 GM PACKET PO PRN (21:00)
[2017-10-15 21:09] LABS: HEMOGLOBIN A1C 5.9 % (4.2-6.3)
[2017-10-15 21:12] LABS: FREE T4 (FREE THYROXINE) 1.36 ng/dL (0.76-1.46); THYROID STIMULATING HORMONE 5.55 mIU/L (0.358-3.740)
[2017-10-15 21:24] VITALS: BP 180/92
[2017-10-15] MEDS ORDERED: MELATONIN 5 MG TABLET PO PRN (21:30)
[2017-10-15] MEDS: HEPARIN 5,000 UNITS/ML, 1ML SQ SCH (21:39)
[2017-10-15] MEDS: DOCUSATE 100 MG CAPSULE PO SCH (21:40)
[2017-10-16 00:47] VITALS: BP 164/77
[2017-10-16] MEDS: METOPROLOL TARTRATE 50 MG TABLET PO SCH ×2 (05:06→17:15)
[2017-10-16] MEDS: HEPARIN 5,000 UNITS/ML, 1ML SQ SCH ×3 (05:06→21:40)
[2017-10-16 05:29] LABS: BASOPHILS # (AUTO) 0.06 x10^3/uL (0-0.1); BASOPHILS % (AUTO) 1 % (0-1); EOSINOPHILS # (AUTO) 0.57 x10^3/uL (0-0.4); EOSINOPHILS % (AUTO) 7 % (1-7); LYMPHOCYTES # (AUTO) 0.62 x10^3/uL (1-3.4); LYMPHOCYTES % (AUTO) 8 % (22-44); MD NO; MEAN CORPUSCULAR HEMOGLOBIN 31.9 pg (27.5-34.5); MEAN CORPUSCULAR HGB CONC 33.1 g/dL (33.2-36.2); MEAN CORPUSCULAR VOLUME 96.4 fL (81-97); MEAN PLATELET VOLUME 8.1 fL (7.4-10.4); MONOCYTES # (AUTO) 0.78 x10^3/uL (0.2-0.8); MONOCYTES % (AUTO) 10 % (2-9); NEUTROPHILS # (AUTO) 6.19 x10^3/uL (1.8-6.8); NEUTROPHILS % (AUTO) 75 % (42-75); PLATELET COUNT 331 x10^3/uL (130-400); RED BLOOD COUNT 3.72 x10^6/uL (4.38-5.82); RED CELL DISTRIBUTION WIDTH 15.4 % (9.4-14.8)
[2017-10-16 05:43] LABS: CALCIUM 7.7 mg/dL (8.5-10.1); CHLORIDE 111 mmol/L (98-107)
[2017-10-16 05:47] LABS: ALANINE AMINOTRANSFERASE 23 U/L (12-78); ALBUMIN 2.2 g/dL (3.4-5.0); ALKALINE PHOSPHATASE 64 U/L (45-117); BILIRUBIN,TOTAL 0.3 mg/dL (0.2-1.0); CHOL/HDL RATIO 2.8; CHOLESTEROL, TOTAL 143 mg/dL (140-239); CREATININE 2.02 mg/dL (0.7-1.3); HDL CHOL % 36 % (26-37); HDL CHOLESTEROL (DIRECT) 52 mg/dL (40-60); LDL CHOLESTEROL,CALCULATED 72 mg/dL (54-169); LDL/HDL RATIO 1.4 (0.5-3.0); TOTAL PROTEIN 5.6 g/dL (6.4-8.2); TRIGLYCERIDES 93 mg/dL (50-200); VLDL CHOLESTEROL 19 mg/dL (0-25)
[2017-10-16 05:53] LABS: ANION GAP 5 mmol/L (5-15)
[2017-10-16] MEDS ORDERED: ASPIRIN 325 MG TABLET EC PO SCH (06:00)
[2017-10-16 07:42] VITALS: BP 159/79
[2017-10-16] MEDS: DOCUSATE 100 MG CAPSULE PO SCH ×2 (08:40→21:41)
[2017-10-16] MEDS: ASPIRIN 81 MG TABLET EC PO SCH (09:55)
[2017-10-16] MEDS: OMEPRAZOLE 20 MG CAPSULE.DR PO SCH (09:55)
[2017-10-16] MEDS: AMLODIPINE 5 MG TABLET PO SCH (09:55)
[2017-10-16] MEDS ORDERED: LIDOCAINE-MPF 2%, 2ML ONE (10:20)
[2017-10-16 12:37] VITALS: BP 153/72
[2017-10-16 15:37] LABS: MICROSCOPIC INDICATED
[2017-10-16 16:05] LABS: CULTURE INDICATED? YES
[2017-10-16 17:10] VITALS: BP 137/77
[2017-10-16 20:00] VITALS: BP 144/78
[2017-10-17 02:00] VITALS: BP 135/81
[2017-10-17 03:00] VITALS: BP 142/75
[2017-10-17] MEDS: HEPARIN 5,000 UNITS/ML, 1ML SQ SCH ×3 (05:40→20:38)
[2017-10-17] MEDS: METOPROLOL TARTRATE 50 MG TABLET PO SCH ×2 (05:41→16:55)
[2017-10-17 06:25] LABS: CHLORIDE 112 mmol/L (98-107)
[2017-10-17 06:39] VITALS: BP 130/82
[2017-10-17 06:43] LABS: ANION GAP 8 mmol/L (5-15); CALCIUM 7.6 mg/dL (8.5-10.1); CREATININE 2.11 mg/dL (0.7-1.3)
[2017-10-17] MEDS: DOCUSATE 100 MG CAPSULE PO SCH ×2 (08:08→20:37)
[2017-10-17] MEDS: AMLODIPINE 5 MG TABLET PO SCH (08:08)
[2017-10-17] MEDS: OMEPRAZOLE 20 MG CAPSULE.DR PO SCH (08:08)
[2017-10-17] MEDS: ASPIRIN 81 MG TABLET EC PO SCH (08:08)
[2017-10-17 13:52] VITALS: BP 144/82
[2017-10-17] MEDS: FUROSEMIDE 20 MG/2 ML IV SCH (16:55)
[2017-10-17 20:00] VITALS: BP 108/66
[2017-10-17 20:36] VITALS: BP 126/73
[2017-10-18 01:55] VITALS: BP 134/78
[2017-10-18 02:00] VITALS: BP 128/75
[2017-10-18] MEDS: HEPARIN 5,000 UNITS/ML, 1ML SQ SCH ×3 (05:05→21:25)
[2017-10-18 05:08] VITALS: BP 139/71
[2017-10-18] MEDS: METOPROLOL TARTRATE 50 MG TABLET PO SCH ×2 (05:23→18:14)
[2017-10-18 05:55] LABS: ANION GAP 3 mmol/L (5-15); CALCIUM 7.5 mg/dL (8.5-10.1); CHLORIDE 110 mmol/L (98-107)
[2017-10-18 05:56] LABS: CREATININE 2.25 mg/dL (0.7-1.3)
[2017-10-18 06:54] VITALS: BP 145/81
[2017-10-18] MEDS: FUROSEMIDE 20 MG/2 ML IV SCH (08:38)
[2017-10-18] MEDS: DOCUSATE 100 MG CAPSULE PO SCH ×2 (08:38→21:25)
[2017-10-18] MEDS: OMEPRAZOLE 20 MG CAPSULE.DR PO SCH (08:38)
[2017-10-18] MEDS: AMLODIPINE 5 MG TABLET PO SCH (08:39)
[2017-10-18] MEDS: ASPIRIN 81 MG TABLET EC PO SCH (08:39)
[2017-10-18 14:22] VITALS: BP 125/73
[2017-10-18 20:00] VITALS: BP 143/67
[2017-10-19 01:26] VITALS: BP 135/78
[2017-10-19] MEDS: HEPARIN 5,000 UNITS/ML, 1ML SQ SCH ×2 (05:16→13:00)
[2017-10-19 05:19] VITALS: BP 148/75
[2017-10-19 05:20] LABS: ANION GAP 5 mmol/L (5-15); CALCIUM 7.7 mg/dL (8.5-10.1); CHLORIDE 108 mmol/L (98-107); CREATININE 2.09 mg/dL (0.7-1.3)
[2017-10-19] MEDS: METOPROLOL TARTRATE 50 MG TABLET PO SCH (05:20)
[2017-10-19] MEDS: ASPIRIN 81 MG TABLET EC PO SCH (08:18)
[2017-10-19] MEDS: OMEPRAZOLE 20 MG CAPSULE.DR PO SCH (08:18)
[2017-10-19] MEDS: AMLODIPINE 5 MG TABLET PO SCH (08:19)
[2017-10-19 08:51] VITALS: BP 148/78
[2017-10-19] MEDS: DOCUSATE 100 MG CAPSULE PO SCH (09:00)
[2017-10-19 12:57] VITALS: BP 137/78
[2017-10-19] MEDS ORDERED: FURO20TA3 PO (13:24)
[2017-10-19] MEDS ORDERED: FUROSEMIDE 20 MG TABLET PO SCH (13:30)
[2017-10-20] MEDS ORDERED: FUROSEMIDE 20 MG TABLET PO SCH (09:00)
== END 2017-10-19 16:12 | DRG 291 ==
LOC: ED 18:15 → EDIP 20:00 → 5SO 21:13
PROVIDERS: ADMIT Internal Medicine; ATTEND Internal Medicine
PROC: 02HV33Z Insertion of Infusion Device into Superior Vena Cava, Percutaneous Approach (ICD-10-PCS; 2017-10-15)
PROC: B548ZZA Ultrasonography of Superior Vena Cava, Guidance (ICD-10-PCS; 2017-10-15)
PROC: 0W9B3ZZ Drainage of Left Pleural Cavity, Percutaneous Approach (ICD-10-PCS; principal; 2017-10-16)
DX: I13.0 Hypertensive heart and chronic kidney disease with heart failure and stage 1 through stage 4 chronic kidney disease, or unspecified chronic kidney disease (principal); J96.21 Acute and chronic respiratory failure with hypoxia; E43 Unspecified severe protein-calorie malnutrition; I50.33 Acute on chronic diastolic (congestive) heart failure; N17.9 Acute kidney failure, unspecified; J90 Pleural effusion, not elsewhere classified; I82.210 Acute embolism and thrombosis of superior vena cava; D68.69 Other thrombophilia; Z88.8 Allergy status to other drugs, medicaments and biological substances; I27.20 Pulmonary hypertension, unspecified; N18.3 Chronic kidney disease, stage 3 (moderate); Z79.82 Long term (current) use of aspirin; Z93.2 Ileostomy status; Z95.0 Presence of cardiac pacemaker; Z68.29 Body mass index [BMI] 29.0-29.9, adult
CPT/HCPCS: 32555; 36415; 36556; 71045; 71046; 80048; 80053; 80061; 81001; 82945; 83036; 83615; 83735; 83880; 84157; 84439; 84443; 84484; 85025; 85610; 85730; 87070; 87075; 87086; 87205; 88112; 88305; 89051; 93005; 99291; G0378; J1644; J3490; J0360; J1940